=== PATIENT | female | born 1985 ===

== ENCOUNTER 2021-10-27 18:05 | Outpatient (REF) | payer BC, SELFPAY ==
--- NOTE | 2021-10-27 14:50 | PAPFT_PTH ---
PATIENT: Nelly Amor LOC: [facility] U#:[id number] AGE/SX: 36/F ROOM: RE10/27/[address]: Krysten Sanchez : 1985 BED: DIS: 10/27/2021 SPEC #: [id number] RECD: 10/28/21 12:45 STATUS: SHERIN REQ #: [id number] CARLOS: 10/27/21 14:[address]: Krysten Sanchez DEPT: [facility] Cytology RECD BY: Cassidy Jacobo ENTERED: 10/28/21 12:45 SP TYPE: PAPFT OT DR: Unknown,Unknown Tissues: 1 - CX/ENDOCX FOR PAP SMEARS Procedures: PAP THIN PREP/[facility] Screening HPV DNA PROBE Comments: [id number]
--- OUTSIDE RECORDS SUMMARY | 2021-10-27 18:10 | XMS_ITS ---
:1985 Author Care Team Providers Name Role Phone Provider Primary Care Provider Unavailable Allergies Code Code System Name Reaction Severity Status Onset Bee Venom ? ? Active ? Protein (Honey Bee) Cat Dander ? ? Active ? 397748 RxNorm House Dust ? ? Active ? 1073364 RxNorm Castella ? ? Active ? Penicillins ? ? Active ? 4149421 RxNorm Pineapple ? ? Active ? Sulfa ? ? Active ? (Sulfonamide Antibiotics) 0782089 RxNorm Wheat ? ? Active ? Notes: any cillins Medications Name Status Start Date Stop Date ? ? Advair HFA 45 mcg-21 mcg/actuation Completed ? 11/08/2019 aerosol inhaler azithromycin 250 mg tablet Completed ? 11/[address] - ER 3 mg capsule,delayed,extended release Active ? Not available Take 1 capsule every day by oral route. budesonide ER 6 mg capsule,extended release Active ? Not available Take 1 capsule every day by oral route. cephalexin 500 mg capsule Completed ? 2019 Claritin 10 mg tablet Active ? Not availa ble Take 1 tablet every day by oral route as needed. For allergies cyanocobalamin (vit B-12) 1,000 mcg/mL injection solution Active ? Not available Inject 1 mL every 4 weeks by subcutaneous route. given in office IM injection cyclobenzaprine 10 mg tablet Active ? Not available Take 1 tablet 3 times a day by oral route. Eliquis 2.5 mg tablet Active ? Not availa ble Take 1 tablet twice a day by oral route for 30 days. epinephrine 0.3 mg/0.3 mL injection, Active ? Not available auto-injector fluticasone propionate 50 mcg/actuation Active ? Not available nasal spray,suspension ibuprofen 600 mg tablet Active ? Not avai lable Macrobid 100 mg capsule Active ? Not avai lable Take 1 capsule every 12 hours by oral route for 5 days. meclizine 25 mg tablet Active ? Not avail able Take 1 tablet 3 times a day by oral route as needed. metoprolol succinate ER 25 mg Completed ? tablet,extended release 24 hr mupirocin 2 % topical ointment Completed ? 1 norethindrone (contraceptive) 0.35 mg Completed ? 03/19/2020 tablet oxycodone-acetaminophen 5 mg-325 mg Completed ? 03/19/2020 tablet prednisone 10 mg tablet Completed ? 11/08/19 20 ProAir HFA 90 mcg/actuation aerosol Active ? Not available inhaler promethazine 12.5 mg tablet Active ? Not available Notes: patient stated that she h as not been taking her allergy medications for the last month. Problems Name Status Onset Date Source ? Celiac Disease Active 02/23/2019 ? 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 Gastroesophageal Reflux Disease Active 01/30/2020 ? Migraine Active ? ? Hypertensive Disorder Active ? ? Asthma Active ? ? Colitis Active ? ? History of Endometriosis Active ? ? Procedures Date Name Performed by ? 04/23/2020 Vein Ligation/Stripping Information not available 06/19/2016 Left Oophorectomy Information not avai lable 06/19/2016 Tubal Ligation Information not avai lable 06/19/2014 Colonoscopy Information not avai lable Notes: [facility] lymphocy tic colitis 06/19/2008 Nasal Surgery Procedure Information not available Notes: Sinus canals widened, and tanika ated septum repair 06/19/2005 Egd Information not avai lable Notes: [facility] 06/19/2004 [place] Teeth Extraction Information not available 11/17/2020 XR, Hip + Pelvis, Unilateral [facility] Radiology (Internal) [address] [place] [address] (Work Place) Results Lab Results Date Name Specimen Result Interpretation Description Value Range Status Address ? 12/08/2020 CBC W/ BLD High Wbc 10.8 10*3/uL 5.0-10.0 Final [place] Diff 10*3/uL [facility] L ab (Internal) : [address] ? ? BLD ? Rbc 4.39 10*6/uL 4.10-5.30 Final N orth 10*6/uL [facility] L ab (Internal) : [address] ? ? BLD ? Hgb 14.5 g/dL 12.0-16.0 Final Nort h g/dL [facility] Hospital L ab (Internal) : [address] ? ? BLD ? Hct 41.2 % 37.0-47.0 Final [facility] Hospital L ab (Internal) : [address] ? ? BLD ? Mcv 93.8 fL 80.0-96.0 Final [facility] Hospital L ab (Internal) : [address] ? ? BLD High Mch 33.0 pg 26.0-32.0 Final [facility] Hospital L ab (Internal) : [address] ? ? BLD High Mchc 35.2 g/dL 31.0-35.0 Final Nort h g/dL [facility] Hospital L ab (Internal) : [address] ? ? BLD ? Rdw 11.6 % 11.5-14.[address] [facility] L ab (Internal) : [address] ? ? BLD ? Plt 267 10*3/uL 130-450 Final Nort h 10*3/uL [facility] Hospital L ab (Internal) : [address] ? ? BLD ? Anc 7.49 10*3/uL ? Final Nort h [facility] Hospital L ab (Internal) : [address] ? ? BLD ? Nlr 3.04 0.00-3.20 Final [facility] L ab (Internal) : [address] ? ? BLD ? Neutro 69.1 % 40.0-75.[address] [facility] L ab (Internal) : [address] ? ? BLD ? Lymph 22.7 % 20.0-50.0 Final [facility] Hospital L ab (Internal) : [address] ? ? BLD ? Liberty 5.3 % 2.0-10.[address] [facility] L ab (Internal) : [address] ? ? BLD ? Eos 1.9 % 1.0-6.0 % Final [facility] L ab (Internal) : [address] ? ? BLD ? Baso 0.5 % 0.0-1.0 % Final [facility] Hospital L ab (Internal) : [address] ? ? BLD ? Ig 0.5 % 0.0-0.9 % Final [facility] Hospital L ab (Internal) : [address] 12/08/2020 BMP, S ? g/r 95 mg/dL 74-106 Final Nort h Serum or mg/dL [facility] Plasma Hospital L ab (Internal) : [address] ? ? S ? Bun 14 mg/dL 7-17 Final [place] mg/dL [facility] Hospital L ab (Internal) : [address] ? ? S ? Crea 0.90 mg/dL 0.52-1.04 Final Nor th mg/dL [facility] Hospital L ab (Internal) : [address] t ? ? S ? Ca 9.6 mg/dL 8.4-10.2 Final [place] mg/dL [facility] L ab (Internal) : [address] t ? ? S ? Na 140 mmol/L 137-145 Final [place] mmol/L [facility] Hospital L ab (Internal) : [address] t ? ? S ? K 4.2 mmol/L 3.5-5.1 Final [place] mmol/L [facility] Hospital L ab (Internal) : [address] t ? ? S ? Cl 102 mmol/L 98-107 Final [place] mmol/L [facility] L ab (Internal) : [address] t ? ? S ? Tco2 26.0 mmol/L 22.0-30.0 Final No rth mmol/L [facility] L ab (Internal) : [address] 12/08/2020 Troponin S ? Trop <0.06 NG/mL 0.00-0.06 Fin al [place] I, Serum NG/mL [facility] Lab (Internal) : [address] 12/08/2020 Urinalysi UR ? UA-colo pale yellow pale Fin al North s, r yellow [place] Dipstick, Hospita l Lab Reflex (Internal) : Micro [address] t ? ? UR ? UA-appe clear clear Final [facility] Hospital L ab (Internal) : [address], [place] ? ? UR ? UA-spec 1.010 1.003-1.0 Final [place] Grav [address] [place] [address] ab (Internal) : [address] t ? ? UR ? UA-pH 7.5 [pH] 4.6-8.0 Final [place] [pH] [facility] ab (Internal) : [address] t ? ? UR ABNORMAL UA-leuk small negative Final Nort h Est [facility] ab (Internal) : [address] t ? ? UR ? UA-nitr negative negative Final Nort h ite [facility] ab (Internal) : [address] t ? ? UR ? UA-prot negative negative Final Nort h [facility] ab (Internal) : [address] t ? ? UR ? UA-gluc negative negative Final Nort [facility] ab (Internal) : [address] t ? ? UR ? UA-keto negative negative Final Nort h ne [facility] ab (Internal) : [address] t ? ? UR ? UA-urob normal normal Final [facility] ab (Internal) : [address] t ? ? UR ? UA-bili negative negative Final [facility] ab (Internal) : [address] ? ? UR ABNORMAL UA-bloo large negative Final Nort h d [facility] ab (Internal) : [address] 12/08/2020 EKG Done ? No ? ? ? Nort h by ED observat [facility] recorded (Interna l): . [address] 12/08/2020 Urinalysi UR ABNORMAL UA-WBC 3-5 [hpf] 0-3 [hpf] F [facility] ([facility] : [address] t ? ? UR ABNORMAL UA-RBC 50-100 [hpf] 0-2 [hpf] Final [facility] ab (Internal) : [address] ? ? UR ? UA-bact rare [hpf] none seen Final N orth eria [hpf] [facility] ab (Internal) : [address] ? ? UR ? UA-epit rare [hpf] none seen Final N orth helial [hpf] [facility] Hospital L ab (Internal) : [address] t ? ? UR ? UA-mucu none seen none seen Final No rth s [hpf] [hpf] [facility] L ab (Internal) : [address] 12/08/2020 Culture UR ? Final microbiology ? Final [place] ([place] results [facility] Lab Urine (Internal) : [address] 08/01/2020 CBC W/ BLD ? Wbc 6.1 10*3/uL 5.0-10.0 Final [place] Auto Diff 10*3/uL [facility] Hospital L ab (Internal) : [address] t ? ? BLD ? Rbc 4.24 10*6/uL 4.10-5.30 Final N orth 10*6/uL [facility] Hospital L ab (Internal) : [address] ? ? BLD ? Hgb 13.8 g/dL 12.0-16.0 Final Nort h g/dL [facility] L ab (Internal) : [address] ? ? BLD ? Hct 39.6 % 37.0-47.[address] [facility] L ab (Internal) : [address] ? ? BLD ? Mcv 93.4 fL 80.0-96.0 Final [facility] L ab (Internal) : [address] t ? ? BLD High Mch 32.5 pg 26.0-32.0 Final [place] pg [facility] L ab (Internal) : [address] t ? ? BLD ? Mchc 34.8 g/dL 31.0-35.0 Final Nort h g/dL [facility] Hospital L ab (Internal) : [address] t ? ? BLD ? Rdw 11.6 % 11.5-14.[address] [facility] L ab (Internal) : [address] ? ? BLD ? Plt 224 10*3/uL 130-450 Final Nort h 10*3/uL [facility] L ab (Internal) : [address] ? ? BLD ? Anc 3.56 10*3/uL ? Final Nort h [facility] Hospital L ab (Internal) : [address] ? ? BLD ? Nlr 1.76 0.00-3.[address] [facility] Hospital L ab (Internal) : [address] ? ? BLD ? Neutro 58.9 % 40.0-75.0 Final [facility] Hospital L ab (Internal) : [address] ? ? BLD ? Lymph 33.4 % 20.0-50.0 Final [facility] Hospital L ab (Internal) : [address] ? ? BLD ? Liberty 4.3 % 2.0-10.0 Final [facility] Hospital L ab (Internal) : [address] ? ? BLD ? Eos 2.8 % 1.0-6.0 % Final [facility] L ab (Internal) : [address] ? ? BLD ? Baso 0.3 % 0.0-1.0 % Final [facility] Hospital L ab (Internal) : [address] ? ? BLD ? Ig 0.3 % 0.0-0.9 % Final [facility] Hospital L ab (Internal) : [address] t 08/01/2020 CMP, S ? g/r 86 mg/dL 74-106 Final Nort h Serum or mg/dL [facility] L ab (Internal) : [address] ? ? S ? Bun 9 mg/dL 7-17 Final [place] mg/dL [facility] Hospital L ab (Internal) : [address] ? ? S ? Crea 0.70 mg/dL 0.52-1.04 Final Nor th mg/dL [facility] L ab (Internal) : [address] ? ? S ? Ca 8.9 mg/dL 8.4-10.2 Final [place] mg/dL [facility] Hospital L ab (Internal) : [address] ? ? S ? Na 141 mmol/L 137-145 Final North mmol/L [facility] Hospital L ab (Internal) : [address] ? ? S Low K 3.3 mmol/L 3.5-5.1 Final [place] mmol/L [facility] L ab (Internal) : [address] ? ? S ? Cl 106 mmol/L 98-107 Final [place] mmol/L [facility] L ab (Internal) : [address] ? ? S ? Tco2 24.0 mmol/L 22.0-30.0 Final No rth mmol/L [facility] L ab (Internal) : [address] ? ? S ? Tp 7.7 g/dL 6.3-8.2 Final [place] g/dL [facility] L ab (Internal) : [address] t ? ? S ? Alb 4.6 g/dL 3.5-5.0 Final [place] g/dL [facility] L ab (Internal) : [address] t ? ? S ? Tbil 0.8 mg/dL 0.2-1.3 Final [place] mg/dL [facility] Hospital L ab (Internal) : [address] t ? ? S Low Alp 48 U/L 50-136 Final North U/L [facility] Hospital L ab (Internal) : [address] ? ? S ? Alt 16 U/L 9-52 U/L Final [place] (Sgpt) [facility] Hospital L ab (Internal) : [address] ? ? S ? Ast 26 U/L 14-36 U/L Final [place] (Sgot) [facility] Hospital L ab (Internal) : [address] 08/01/2020 Urinalysi UR ? UA-colo pale yellow pale Fin al North s, r yellow Country Dipstick, Hospita l Lab Reflex (Internal) : Micro [address] t ? ? UR ? UA-appe clear clear Final North ar [facility] L ab (Internal) : [address] t ? ? UR ? UA-spec 1.010 1.003-1.0 Final North Grav 35 [facility] L ab (Internal) : [address] ? ? UR ? UA-pH 6.0 [pH] 4.6-8.0 Final [place] [pH] [facility] Hospital L ab (Internal) : [address] ? ? UR ? UA-leuk negative negative Final Nort h [facility] ab (Internal) : [address] [place] ? ? UR ? UA-nitr negative negative Final Nort h ite [facility] ab (Internal) : [address] [place] ? ? UR ? UA-prot negative negative Final Nort h [facility] ab (Internal) : [address] [place] ? ? UR ? UA-gluc negative negative Final Nort h [facility] ab (Internal) : [address] [place] ? ? UR ABNORMAL UA-keto trace negative Final Nort h ne [facility] ab (Internal) : [address] [place] ? ? UR ? UA-urob normal normal Final [facility] ab (Internal) : [address] [place] ? ? UR ? UA-bili negative negative Final Nort h [facility] ab (Internal) : [address] [place] ? ? UR ABNORMAL UA-bloo trace negative Final Nort h d [facility] ab (Internal) : [address] t 08/01/2020 Urinalysi UR ? UA-WBC 0-3 [hpf] 0-3 [hpf] Fin al [facility], [facility] Microscop Hospita l Lab ic (Internal) : [address] [place] ? ? UR ? UA-RBC 0-2 [hpf] 0-2 [hpf] Final [facility] ab (Internal) : [address] t ? ? UR ? UA-bact rare [hpf] none seen Final N orth eria [hpf] [facility] ab (Internal) : [address] [place] ? ? UR ABNORMAL UA-epit many [hpf] none seen Final [place] helial [hpf] [facility] ab (Internal) : [address] [place] ? ? UR ABNORMAL UA-mucu few [hpf] none seen Final [facility] [hpf] [facility] ab (Internal) : [address] t 06/01/2020 Urinalysi UR ? UA-colo yellow pale Final N orth s, r yellow [facility] Dipstick, Hospita l Lab Reflex (Internal) : Micro [address] ? ? UR ? UA-appe clear clear Final North ar [facility] ab (Internal) : [address], [place] ? ? UR ? UA-spec 1.020 1.003-1.0 Final [place] Grav 35 [facility] Hospital L ab (Internal) : [address], [place] ? ? UR ? UA-pH 6.5 [pH] 4.6-8.0 Final North [pH] [facility] ab (Internal) : [address], [place] ? ? UR ? UA-leuk negative negative Final Nort h [facility] ab (Internal) : [address], [place] ? ? UR ? UA-nitr negative negative Final Nort h ite [facility] ab (Internal) : [address], [place] ? ? UR ? UA-prot negative negative Final Nort h [facility] ab (Internal) : [address], [place] ? ? UR ? UA-gluc negative negative Final Nort h [facility] ab (Internal) : [address], [place] ? ? UR ? UA-keto negative negative Final Nort h ne [facility] ab (Internal) : [address], [place] ? ? UR ? UA-urob normal normal Final North il [facility] ab (Internal) : [address], [place] ? ? UR ? UA-bili negative negative Final Nort h [facility] ab (Internal) : [address], [place] ? ? UR ? UA-bloo negative negative Final Nort h d [facility] ab (Internal) : [address] [place] 06/01/2020 Chlamydia ? Chlamyd negative negative Vaishali l [place] Trachomat ia [facility] is + Result [facility] Neisseria (Radio Division Captain al): Gonorrhea [address] rRNA, QL, Dr, [place] Genital ? ? ? GC negative negative Final North Result [facility] L ab (Internal) : [address] [place] 06/01/2020 Pap Test, MISC ? Hpv see report ? Final [place] Thinprep, [facility] Cervical Hospital Lab (Internal) : [address] [place] ? ? MISC ? Pap see report ? Final [facility] ab (Internal) : [address] [place] ? ? MISC ? Report (see below) ? Final Nort h [facility] L ab (Internal) : [address] 06/01/2020 [place] Wet Vaginal ? [place]ht[place] neg ? ? P_nc Primary Prep Care [place]: 1 86 [facility] 05/20/2020 Urinalysi UR ? UA-colo yellow pale Final N orth s, r yellow [facility] Dipstick, Hospita l Lab Reflex (Internal) : Micro [address] ? ? UR ? UA-appe clear clear Final [facility] L ab (Internal) : [address] [place] ? ? UR ? UA-spec >=1.030 1.003-1.0 Final Nort h Grav 35 [facility] L ab (Internal) : [address] ? ? UR ? UA-pH 6.0 [pH] 4.6-8.0 Final [place] [pH] [facility] L ab (Internal) : [address] t ? ? UR ABNORMAL UA-leuk moderate negative Final No rth Est [facility] ab (Internal) : [address] t ? ? UR ? UA-nitr negative negative Final Nort h ite [facility] L ab (Internal) : [address] ? ? UR ? UA-prot negative negative Final Nort h [facility] L ab (Internal) : [address] [place] ? ? UR ? UA-gluc negative negative Final Nort h [facility] L ab (Internal) : [address] t ? ? UR ? UA-keto negative negative Final Nort h ne [facility] L ab (Internal) : [address] ? ? UR ? UA-urob normal normal Final North [facility] L ab (Internal) : [address] ? ? UR ? UA-bili negative negative Final Nort h [facility] L ab (Internal) : [address] ? ? UR ABNORMAL UA-bloo trace negative Final Nort h d [facility] ab (Internal) : [address] 05/20/2020 Urinalysi UR ABNORMAL UA-WBC 25-50 [hpf] 0-3 [hpf] Final [facility], [facility] Microscop Hospita [facility] Lab ic (Internal) : [address] ? ? UR ABNORMAL UA-RBC 10-25 [hpf] 0-2 [hpf] Final [facility] Hospital L ab (Internal) : [address] ? ? UR ABNORMAL UA-bact moderate none seen Final N orth eria [hpf] [hpf] [facility] L ab (Internal) : [address] t ? ? UR ABNORMAL UA-epit few [hpf] none seen Final [place] helial [hpf] [facility] L ab (Internal) : [address] ? ? UR ABNORMAL UA-mucu few [hpf] none seen Final [place] s [hpf] [facility] L ab (Internal) : [address] 05/20/2020 Culture UR ? Final microbiology ? Final [place] ([place] results [facility]), Hospital Lab Urine (Internal) : [address] 05/09/2020 Glucose, S ? Fbs 94 mg/dL 74-106 Final No rth Fasting, mg/dL [facility] Serum/makenna Hospita l Lab sma (Internal) : [address] t 05/09/2020 Lipid S ? Chol 182 mg/dL 50-[address] [facility] th Panel, mg/dL [facility] L ab (Internal) : [address] ? ? S ? Trig 65 mg/dL 10-150 Final [place] mg/dL [facility] L ab (Internal) : [address] ? ? S ? Hdl 45 mg/dL 40-60 Final [place] mg/dL [facility] L ab (Internal) : [address] ? ? S ? Ldl 124 mg/dL 0-130 Final [place] mg/dL [facility] L ab (Internal) : [address] t 02/03/2020 CBC W/ BLD ? Wbc 7.0 10*3/uL 5.0-10.0 Final [place] Auto Diff 10*3/uL [facility] L ab (Internal) : [address] t ? ? BLD ? Rbc 4.24 10*6/uL 4.10-5.30 Final N orth 10*6/uL [facility] L ab (Internal) : [address] ? ? BLD ? Hgb 13.9 g/dL 12.0-16.0 Final Nort h g/dL [facility] Hospital L ab (Internal) : [address] ? ? BLD ? Hct 39.8 % 37.0-47.[address] [facility] L ab (Internal) : [address] ? ? BLD ? Mcv 93.9 fL 80.0-96.0 Final [facility] Hospital L ab (Internal) : [address] ? ? BLD High Mch 32.8 pg 26.0-32.0 Final [facility] L ab (Internal) : [address] ? ? BLD ? Mchc 34.9 g/dL 31.0-35.0 Final Nort h g/dL [facility] Hospital L ab (Internal) : [address] ? ? BLD Low Rdw 11.4 % 11.5-14.[address] [facility] L ab (Internal) : [address] ? ? BLD ? Plt 231 10*3/uL 130-450 Final Nort h 10*3/uL [facility] Hospital L ab (Internal) : [address] ? ? BLD ? Anc 4.26 10*3/uL ? Final Nort h [facility] L ab (Internal) : [address] ? ? BLD ? Nlr 2.03 0.00-3.20 Final [facility] L ab (Internal) : [address] ? ? BLD ? Neutro 60.9 % 40.0-75.[address] [facility] L ab (Internal) : [address] ? ? BLD ? Lymph 30.0 % 20.0-50.[address] [facility] L ab (Internal) : [address] ? ? BLD ? Liberty 5.0 % 2.0-10.[address] [facility] L ab (Internal) : [address] ? ? BLD ? Eos 3.4 % 1.0-6.0 % Final [facility] L ab (Internal) : [address] ? ? BLD ? Baso 0.4 % 0.0-1.0 % Final [facility] Hospital L ab (Internal) : [address] ? ? BLD ? Ig 0.3 % 0.0-0.9 % Final [facility] Hospital L ab (Internal) : [address] 02/03/2020 Iron, SERUM ? Iron 84 ug/dL 37-170 Final Nort h Serum ug/dL [facility] Hospital L ab (Internal) : [address] 02/03/2020 BMP, S ? g/r 96 mg/dL 74-106 Final Nort h Serum or mg/dL [facility] Hospital L ab (Internal) : [address] ? ? S ? Bun 11 mg/dL 7-17 Final [place] mg/dL [facility] L ab (Internal) : [address] ? ? S ? Crea 0.80 mg/dL 0.52-1.04 Final Nor th mg/dL [facility] Hospital L ab (Internal) : [address] ? ? S ? Ca 9.0 mg/dL 8.4-10.2 Final [place] mg/dL [facility] L ab (Internal) : [address] ? ? S ? Na 137 mmol/L 137-145 Final [place] mmol/L [facility] L ab (Internal) : [address] ? ? S ? K 4.1 mmol/L 3.5-5.1 Final [place] mmol/L [facility] L ab (Internal) : [address] ? ? S ? Cl 105 mmol/L 98-107 Final [place] mmol/L [facility] L ab (Internal) : [address] ? ? S ? Tco2 24.0 mmol/L 22.0-30.0 Final No rth mmol/L [facility] L ab (Internal) : [address] 02/03/2020 Ferritin, S ? Ferr 32 NG/mL 11-264 Final N orth Serum or NG/mL [facility] Plasma Hospital L ab (Internal) : [address] 02/03/2020 Folate, S ? Folate 3.26 NG/mL 2.76-20.0 Vaishali l [place] Serum 0 NG/mL [facility] Hospital L ab (Internal) : [address] 02/03/2020 Vitamin S High Vit B12 >1000.0 239.0-931 Final [place] B12, pg/mL .0 pg/mL [facility] L ab (Internal) : [address] 02/03/2020 Zinc, S ? Zinc, S 0.66 mcg/mL 0.66-1.10 Fin al [place] Serum or mcg/mL [facility] L ab (Internal) : [address] 02/03/2020 Vitamin S ? 1,25-Di 54 pg/mL 18-78 Final N orth D, hydroxyv pg/mL [facility] 1,25-Dihy itamin Hospita l Lab droxy, D, S (Internal) : Serum [address] 01/14/2020 SARS CoV SWAB ? Covid-1 negative negative Final [place] 2 RNA 9 Result [facility] (COVID-19 Hospita l Lab ), QL, (Internal) : farm operations manager-PCR, [address] [facility] ry Specimen ? ? SWAB ? Perform the broad ? Final [facility] (Internal) : [address] t 11/08/2019 Thyroid S ? Tsh 1.29 0.47-4.68 Final No rth [place], u[IU]/mL u[IU]/mL [facility] (Internal) : [address] Past Encounters 01/05/2021 Pain of Left Hip Joint; Strain of Muscle of Left Hip Lani Benoit, PT: [address] [place] [address], [address] [phone], Ph. 12/30/2020 Pain of Left Hip Joint; Strain of Muscle of Left Hip Lani Benoit, PT: [address] [place] [address], [facility] [address] [address], Ph. 12/23/2020 Pain of Left Hip Joint; Strain of Muscle of Left Hip Lani Benoit, PT: [address] [place] [address], [facility] [address], [place] [address], Ph. 12/17/2020 Pain of Left Hip Joint; Strain of Muscle of Left Hip Lani Benoit, PT: [address] [facility] [address], [address], [place] [address], Ph. 12/11/2020 Pain of Left Hip Joint; Strain of Muscle of Left Hip Lani Benoit, PT: [address] [facility] [address], [place] [address], Ph. 10/30/2020 Pain of Left Hip Joint Arnoldo Beatty, [employer]CTIONAL SUPERVISOR [employer]: [address] [place] [address], Ph. 06/01/2020 Dysuria; Acute Pelvic Pain; Colitis; Rec Therapist ecologic Examination Arnoldo Beatty, [employer]: [address] [place] [address], Ph. 04/30/2020 Adult Health Examination; Influenza Vacc ine Needed Arnoldo Beatty, [employer]: [address] [place] [phone], Ph. Social History Tobacco Smoking Status Never Smoker Vaccine List Vaccine Type influenza, seasonal, injectable 03/17/2014 influenza, seasonal, injectable, preserv ative free 04/08/2015 Rho(D) -IG IM 05/08/2015 07/20/2015 Rho(D)-IG 06/12/2014 Tdap 06/30/2015 Plan of Care Reminders Provider Appointments None ? ? recorded. Lab None ? ? recorded. Referral None ? ? recorded. Procedures None ? ? recorded. Surgeries None ? ? recorded. Imaging None ? ? recorded. Vitals 10/30/2020 08:20AM Follow Up 20 Height Weight BMI Blood Pressure 164.47 cm 89.49 kg 33.1 kg/m2 142/95 mm[Hg] 06/01/2020 10:40AM Acute 40 Height Blood Pressure 164.47 cm 132/90 mm[Hg] 04/30/2020 07:40AM CPE 40 Height Weight BMI Blood Pressure 164.47 cm 88.54 kg 32.7 kg/m2 122/70 mm[Hg] 03/19/2020 09:20AM Acute 20 Height Weight BMI Blood Pressure 164.47 cm 90.38 kg 33.4 kg/m2 112/80 mm[Hg] 02/03/2020 10:40AM Acute 20 Height Weight BMI Blood Pressure 164.47 cm 93.89 kg 34.7 kg/m2 148/85 mm[Hg] 11/08/2019 03:00PM Acute 20 Height Weight BMI Blood Pressure 164.47 cm 92.08 kg 34 kg/m2 140/78 mm[Hg] 05/07/2019 10:40AM Acute 20 Height Weight BMI Blood Pressure 164.47 cm 92.79 kg 34.3 kg/m2 110/68 mm[Hg] 04/11/2019 09:20AM New Patient 40 Height Weight BMI Blood Pressure 164.47 cm 90.75 kg 33.5 kg/m2 135/108 mm[Hg]
[2021-10-27 20:55] LABS: Anion Gap 10.6 mmol/L (3-11); BUN 12 mg/dL (7-18); CO2 24.4 mmol/L (21.0-32.0); CREATININE 0.9 mg/dL (0.55-1.02); Calcium 8.6 mg/dL (8.5-10.1); Chloride 103 mmol/L (98-107); Glucose 85 mg/dL (74-106); Potassium 3.9 mmol/L (3.5-5.1); Sodium 138 mmol/L (136-145)
== END 2021-10-27 18:06 | disposition home or self-care (01) ==
LOC: NCHCN 18:05
PROVIDERS: Visit Provider Physician Assistant
DX: I10 Essential (primary) hypertension (principal); Z12.4 Encounter for screening for malignant neoplasm of cervix; Z01.419 Encounter for gynecological examination (general) (routine) without abnormal findings; Z87.42 Personal history of other diseases of the female genital tract; Z11.51 Encounter for screening for human papillomavirus (HPV)
CPT/HCPCS: 80048; 88142; 87624

== ENCOUNTER 2022-04-19 17:12 | Outpatient (REF) | payer BC, SELFPAY | END 2022-04-19 17:13 | disposition home or self-care (01) | LOC: NCHCN 17:12 | PROVIDERS: Visit Provider Nurse Practitioner Family | DX: L08.89 Other specified local infections of the skin and subcutaneous tissue (principal) | CPT/HCPCS: 87077; 87070; 87186; 87205 ==